=== PATIENT | female | born 1940 | race Two or more races ===

== ENCOUNTER 2021-08-16 16:45 | Emergency (ER) | payer OTHER ==
[~2021-08-16] VITALS: Ht 160 cm; Wt 68.0 kg
[2021-08-16] MEDS ORDERED: LORAZEPAM0.5 MG PO (17:01)
[2021-08-16] MEDS ORDERED: SERTRALINE HCL50 MG PO (17:02)
[2021-08-16] MEDS ORDERED: SEMGLEE100 UNIT/1 (17:02)
== END 2021-08-16 21:28 | disposition home or self-care (01) ==
LOC: ER 16:45
DX: I16.0 Hypertensive urgency (principal); R11.0 Nausea; R51.9 Headache, unspecified

== ENCOUNTER 2023-03-11 18:18 | Emergency (ER) | payer OTHER ==
[~2023-03-11] VITALS: Ht 160 cm; Wt 70.3 kg
[~2023-03-11 18:18] MED LIST: LORAZEPAM0.5 MG PO; SEMGLEE100 UNIT/1; SERTRALINE HCL50 MG PO
[2023-03-11] MEDS ORDERED: INSULIN LI100 UNIT/1 SQ (18:34)
[2023-03-11] MEDS ORDERED: INSULIN GL100 UNIT/3 SQ (18:35)
== END 2023-03-11 20:17 | disposition home or self-care (01) ==
LOC: ER 18:18
DX: E11.65 Type 2 diabetes mellitus with hyperglycemia (principal); Z79.4 Long term (current) use of insulin; Z91.041 Radiographic dye allergy status; I10 Essential (primary) hypertension; E78.00 Pure hypercholesterolemia, unspecified

== ENCOUNTER 2024-03-02 14:21 | Inpatient (IN) | payer OTHER ==
[~2024-03-02] VITALS: Ht 157.5 cm; Wt 75.3 kg
[~2024-03-02 14:21] MED LIST changes: +INSULIN GL100 UNIT/3 SQ; +INSULIN LI100 UNIT/1 SQ
[2024-03-02] MEDS ORDERED: XARELTO2.5 MG (15:14)
[2024-03-02] MEDS ORDERED: ATORVASTATIN CA40 MG (15:14)
[2024-03-02] MEDS ORDERED: ADULT LOW DOSE81 M1 (15:15)
[2024-03-02] MEDS ORDERED: LIPOFEN150 MG (15:16)
[2024-03-02] MEDS ORDERED: SYNTHROID100 MCG (15:16)
[2024-03-02] MEDS ORDERED: INSULIN REGULAR, HUMAN 1,000 UNIT/10 ML UNITS SUBCUTANEO ONE (16:15)
[2024-03-02] MEDS ORDERED: CETIRIZINE HCL 5 MG/5 ML ML PO ONE (16:15)
[2024-03-02 16:46] LABS: HEMATOCRIT 34.9 % (36.0-45.00); HEMOGLOBIN 11.6 g/dL (12.0-15.00); MEAN CELL VOLUME 84.2 fL (80.00-100.00); MEAN CORPUSCULAR HGB CONC 33.2 g/dl (32.0-36.0); PLATELET COUNT 365 K/uL (150-450); RED BLOOD COUNT 4.15 M/uL (4.00-6.00); RED CELL DISTRIBUTION WIDTH 13.8 % (11.5-14.5)
[2024-03-02 18:31] LABS: ALBUMIN 3.5 gm/dL (3.4-5.0); BILIRUBIN TOTAL 0.2 mg/dL (0.3-1.2); CALCIUM 8.8 mg/dL (8.5-10.1); CREATININE SERUM 1.08 mg/dL (0.55-1.02); GFR 48.69; GLOBULINA 3.8 G/DL (2.4-3.5); TOTAL PROTEIN 7.3 gm/dL (6.4-8.2)
[2024-03-02 18:41] LABS: INR 1.04; PARTIAL THROMBOPLASTIN TIME 25.9 SECONDS (22.0-34.0); PROTHROMBIN TIME 10.9 SECONDS (9.0-11.5)
[2024-03-02] MEDS ORDERED: ASPIRIN 81 MG TAB.CHEW PO ONE (19:15)
[2024-03-02] MEDS ORDERED: FAMOTIDINE/PF 20 MG/2 ML VIAL IV ONE (19:15)
[2024-03-02 20:01] LABS: URINE APPEARANCE Clear; URINE BILIRRUBIN Negative (NEGATIVE); URINE BLOOD Negative; URINE COLOR Yellow; URINE KETONE Negative (NEGATIVE); URINE LEUKOCYTE Negative; URINE NITRATE Negative; URINE PROTEIN Negative (NEGATIVE); URINE UROBILINOGEN 0.2 E.U./dl
[2024-03-02 20:05] LABS: URINE EPITHELIAL CELLS 19.4 uL (0.0-38.8); URINE WBC 18.2 uL (0.0-23.2)
[2024-03-02 20:07] LABS: URINE GLUCOSE 250 MG/DL (NEGATIVE); URINE RBC 1.5 uL (0.0-20.8)
[2024-03-02] MEDS ORDERED: FAMOTIDINE/PF 20 MG in 0.9 % SODIUM CHLORIDE 100 ML IV SCH (22:12)
[2024-03-02] MEDS ORDERED: INSULIN LISPRO 1,000 UNIT/10 ML UNITS SUBCUTANEO PRN (22:15)
[2024-03-02] MEDS ORDERED: 0.9 % SODIUM CHLORIDE 1,000 ML IV SCH (22:15)
[2024-03-02] MEDS ORDERED: DEXTROSE 50 % IN WATER 0.5 G/ML DISP.SYRIN IV PRN (22:15)
[2024-03-02] MEDS ORDERED: NITROGLYCERIN 250 ML IV SCH (22:15)
[2024-03-02] MEDS ORDERED: RIVAROXABAN 10 MG TAB PO SCH (22:19)
[2024-03-02] MEDS ORDERED: ENALAPRILAT DIHYDRATE 1.25 MG/ML VIAL IV PRN (22:30)
[2024-03-02 22:54] LABS: ABG PH 7.402 (7.35-7.45); ABG PO2 84.9 mmHg (80-100); ABG pCO2 38.2 mmHg (35-45); BASE EXCESS -1.2 mmol/l; BICARBONATE 23.3 mmol/l (23-25); SaO2 96.3 %; Tco2 24.5 mmol/l
[2024-03-02 23:03] LABS: allen test SATISFACTORY; o2 21 %; puncture site RADIAL RIGHT
[2024-03-03 00:43] LABS: HEMATOCRIT 34.6 % (36.0-45.00); HEMOGLOBIN 11.5 g/dL (12.0-15.00); MEAN CELL VOLUME 84.8 fL (80.00-100.00); MEAN CORPUSCULAR HEMOGLOBIN 28.2 pg (27.00-32.0); MEAN CORPUSCULAR HGB CONC 33.3 g/dl (32.0-36.0); PLATELET COUNT 364 K/uL (150-450); RED BLOOD COUNT 4.08 M/uL (4.00-6.00); RED CELL DISTRIBUTION WIDTH 13.8 % (11.5-14.5)
[2024-03-03 01:14] LABS: ALBUMIN 3.4 gm/dL (3.4-5.0); BILIRUBIN TOTAL 0.23 mg/dL (0.3-1.2); CALCIUM 8.7 mg/dL (8.5-10.1); CREATININE SERUM 1.03 mg/dL (0.55-1.02); GFR 51.43; GLOBULINA 3.2 G/DL (2.4-3.5); POTASSIUM 4.16 mEq/L (3.5-5.1); T4 FREE 1.04 NG/ML (0.76-1.46); TOTAL PROTEIN 6.6 gm/dL (6.4-8.2)
[2024-03-03 01:16] LABS: ALBUMIN 3.4 gm/dL (3.4-5.0); CALCIUM 8.8 mg/dL (8.5-10.1); CKMB 3.1 NG/ML (0.5-3.6); CREATININE SERUM 1.05 mg/dL (0.55-1.02); GFR 50.3; PHOSPHOROUS 2.6 mg/dL (2.5-4.9); POTASSIUM 4.01 mEq/L (3.5-5.1)
[2024-03-03 01:21] LABS: CHOL HDL RATIO 3.3 (0-5.0); TSH 0.443 uIU/mL (0.358-3.74)
[2024-03-03] MEDS ORDERED: LEVOTHYROXINE SODIUM 100 MCG TABLET PO SCH (06:00)
[2024-03-03] MEDS ORDERED: NITROGLYCERIN IN 5 % DEXTROSE 250 ML IV SCH (06:45)
[2024-03-03] MEDS ORDERED: ATORVASTATIN CALCIUM 40 MG TABLET PO SCH (09:00)
[2024-03-03] MEDS ORDERED: RAMIPRIL 2.5 MG CAPSULE PO SCH (09:00)
[2024-03-03] MEDS ORDERED: SERTRALINE HCL 25 MG TABLET PO SCH (09:00)
[2024-03-03] MEDS ORDERED: RIVAROXABAN 10 MG TAB PO SCH (17:00)
[2024-03-03] MEDS ORDERED: PATIENTS OWN MEDICATION (MEDICAMENTO EN PISO) PO SCH (17:00)
[2024-03-04] MEDS ORDERED: INSULIN NPH HUMAN ISOPHANE 1,000 UNITS/10 ML UNITS SUBCUTANEO STA (09:54)
[2024-03-04] MEDS ORDERED: XARELTO2.5 MG PO (14:41)
[2024-03-04] MEDS ORDERED: SERTRALINE HCL25 MG PO (14:41)
[2024-03-04] MEDS ORDERED: RAMIPRIL2.5 MG PO (14:41)
[2024-03-04] MEDS ORDERED: SYNTHROID100 MCG PO (14:41)
[2024-03-04] MEDS ORDERED: LIPITOR40 M1 PO (14:41)
[2024-03-04] MEDS ORDERED: INSULIN LI100 UNIT/1 SQ (14:41)
[2024-03-04] MEDS ORDERED: LIPOFEN150 MG PO (14:41)
[2024-03-04] MEDS ORDERED: INSULIN NPH HUMAN ISOPHANE 1,000 UNITS/10 ML UNITS SUBCUTANEO SCH (16:00)
[2024-03-04] MEDS ORDERED: XARELTO 2.5 MG PO SCH (17:00)
[2024-03-05] MEDS ORDERED: INSULIN NPH HUMAN ISOPHANE 1,000 UNITS/10 ML UNITS SUBCUTANEO SCH (07:30)
== END 2024-03-04 15:16 | disposition home or self-care (01) | DRG 641 ==
LOC: ER 14:22 → MEDI 22:39
PROVIDERS: General Practice; Nurse Practitioner Family; ADMIT Internal Medicine; ATTEND Internal Medicine
PROC: B24BZZZ Ultrasonography of Heart with Aorta (ICD-10-PCS; principal; 2024-03-02)
PROC: 4A12X4Z Monitoring of Cardiac Electrical Activity, External Approach (ICD-10-PCS; 2024-03-03)
DX: E86.0 Dehydration (principal); I48.91 Unspecified atrial fibrillation; I11.9 Hypertensive heart disease without heart failure; E11.9 Type 2 diabetes mellitus without complications; Z79.4 Long term (current) use of insulin; I73.9 Peripheral vascular disease, unspecified; E03.9 Hypothyroidism, unspecified; E78.5 Hyperlipidemia, unspecified; G47.30 Sleep apnea, unspecified; F32.9 Major depressive disorder, single episode, unspecified